=== PATIENT | male | born 1980 | race African-American/Black ===

== ENCOUNTER 2017-07-16 15:26 | Emergency (ER) | payer SELFPAY ==
--- NOTE | 2017-07-16 16:27 | ER Document Report ---
ED Medical Screen (RME) - General Chief Complaint: Groin Pain Stated Complaint: GROIN PAIN Time Seen by Provider: 07/16/17 16:25 Mode of Arrival: Ambulatory Information source: Patient TRAVEL OUTSIDE OF THE [place] IN LAST 30 DAYS: No - HPI Patient complains to provider of: scrotal pain; dysuria Onset: Yesterday - pt wit c/o scrotal pain and dysuria for the past day - Related Data Allergies/Adverse Reactions: No Known Allergies Allergy (Verified 07/16/17 15:27) Past Medical History - Social History Chew tobacco use (# tins/day): No Frequency of alcohol use: Occasional Drug Abuse: None Renal/ Medical History: Denies: Hx Peritoneal Dialysis - Immunizations Hx Diphtheria, Pertussis, Tetanus Vaccination: Yes - not in the last 5 years Physical Exam - Vital signs Vitals: Temp Pulse Resp BP Pulse Ox 98.7 F 64 16 137/93 H 97 07/16/17 15:43 07/16/17 15:43 07/16/17 15:43 07/16/17 15:43 07/16/17 15:43 Course - Vital Signs Vital signs: Temp Pulse Resp BP Pulse Ox 98.7 F 64 16 137/93 H 97 07/16/17 15:43 07/16/17 15:43 07/16/17 15:43 07/16/17 15:43 07/16/17 15:43
[2017-07-16 16:52] LABS: APPEARANCE,URINE CLEAR; BILIRUBIN,URINE NEGATIVE (NEGATIVE); COLOR,URINE YELLOW; GLUCOSE, URINE NEGATIVE (NEGATIVE); KETONES,URINE NEGATIVE (NEGATIVE); LEUKOCYTE ESTERASE,URINE NEGATIVE (NEGATIVE); NITRITE,URINE NEGATIVE (NEGATIVE); PROTEIN,URINE NEGATIVE (NEGATIVE); URINE SPECIFIC GRAVITY 1.014; UROBILINOGEN,URINE NEGATIVE mg/dL (<2.0)
--- NOTE | 2017-07-16 17:24 | RADIOLOGY REPORT (SQ) ---
EXAM DESCRIPTION: U/S SCROTUM W/DOPPLER COMPLETED DATE/TIME: 07/16/2017 5:17 pm REASON FOR STUDY: scrotal pain COMPARISON: None. TECHNIQUE: Static and realtime solomon scale imaging of the scrotum and testes. Selected color Doppler and spectral images recorded to document blood flow. LIMITATIONS: None. FINDINGS: RIGHT: TESTICLE: Normal size. Testicular microlithiasis. Otherwise normal echotexture. Normal blood flow. No mass. EPIDIDYMIS: Normal. HYDROCELE OR VARICOCELE: No. HERNIA OR EXTRA-TESTICULAR MASS: No. OTHER: No other significant finding. LEFT: TESTICLE: Normal size. Testicular microlithiasis. Otherwise normal echotexture. Normal blood flow. No mass. EPIDIDYMIS: Normal. HYDROCELE OR VARICOCELE: No. HERNIA OR EXTRA-TESTICULAR MASS: No. OTHER: No other significant finding. IMPRESSION: BILATERAL TESTICULAR MICROLITHIASIS. OTHERWISE UNREMARKABLE SCROTAL ULTRASOUND WITHOUT MASS OR TORSION. TECHNICAL DOCUMENTATION: JOB ID: [id number] edo- All Rights Reserved
[2017-07-16 18:14] LABS: CHLAM PCR NOT DETECTED (NOT DETECT); GON PCR NOT DETECTED (NOT DETECT)
--- NOTE | 2017-07-16 18:39 | ER Document Report ---
ED General - General Chief Complaint: Groin Pain Stated Complaint: GROIN PAIN Time Seen by Provider: 07/16/17 16:25 Mode of Arrival: Ambulatory Notes: Patient is a 37-year-old male without past medical history other than morbid obesity who presents with 2 days of bilateral testicular pain and dysuria. Patient describes the pain as an intermittent, throbbing, aching pain to the bilateral testicles. Nothing improves or worsens the pain. He also notes that occasionally fonseca when he urinates. He denies any fever, rash, abdominal pain , vomiting. No history of similar symptoms in the past. He has not seen his primary doctor regarding today's concerns. He has had unprotected sexual intercourse with female partners. TRAVEL OUTSIDE OF THE [place] IN LAST 30 DAYS: No - Related Data Allergies/Adverse Reactions: No Known Allergies Allergy (Verified 07/16/17 15:27) Past Medical History - General Information source: Patient - Social History Smoking Status: Never Smoker Chew tobacco use (# tins/day): No Frequency of alcohol use: Occasional Drug Abuse: None Family History: Reviewed & Not Pertinent Patient has suicidal ideation: No Patient has homicidal ideation: No Renal/ Medical History: Denies: Hx Peritoneal Dialysis - Immunizations Hx Diphtheria, Pertussis, Tetanus Vaccination: Yes - not in the last 5 years Review of Systems - Review of Systems Notes: Constitutional: Negative for fever. HENT: Negative for sore throat. Eyes: Negative for visual changes. Cardiovascular: Negative for chest pain. Respiratory: Negative for shortness of breath. Gastrointestinal: Negative for abdominal pain, vomiting or diarrhea. Genitourinary: Positive for dysuria and testicular pain Musculoskeletal: Negative for back pain. Skin: Negative for rash. Neurological: Negative for headaches, weakness or numbness. 10 point ROS negative except as marked above and in HPI. Physical Exam - Vital signs Vitals: Temp Pulse Resp BP Pulse Ox 98.7 F 64 16 137/93 H 97 07/16/17 15:43 07/16/17 15:43 07/16/17 15:43 07/16/17 15:43 07/16/17 15:43 Interpretation: Normal Notes: PHYSICAL EXAMINATION: GENERAL: Well-appearing, well-nourished and in no acute distress. HEAD: Atraumatic, normocephalic. EYES: Pupils equal round and reactive to light, extraocular movements intact, sclera anicteric, conjunctiva are normal. ENT: nares patent, oropharynx clear without exudates. Moist mucous membranes. NECK: Normal range of motion, supple without lymphadenopathy LUNGS: Breath sounds clear to auscultation bilaterally and equal. No wheezes rales or rhonchi. HEART: Regular rate and rhythm without murmurs ABDOMEN: Soft, nontender, normoactive bowel sounds. No guarding, no rebound. No masses appreciated. : No focal testicular or epididymal tenderness. Positive cremasteric reflex bilaterally. Uncircumcised penis. No scrotal or penile lesions. No urethral discharge. EXTREMITIES: Normal range of motion, no pitting or edema. No cyanosis. NEUROLOGICAL: No focal neurological deficits. Moves all extremities spontaneously and on command. PSYCH: Normal mood, normal affect. SKIN: Warm, Dry, normal turgor, no rashes or lesions noted. Course - Re-evaluation Re-evalutation: 07/16/17 18:38 Patient presents with microscopic hematuria, bilateral testicular tenderness and dysuria. Testicular exam is unremarkable without any focal epididymal or organ tenderness. Positive cremasteric reflex. No penile lesions or discharge. Urinalysis shows microscopic hematuria but no evidence of infection or gross hematuria. Testicular ultrasound shows microlithiasis in both testicles which may account for patient's symptoms. He is otherwise very well in appearance, vitals within normal limits. Based on exam and history do not suspect an acute infection such as epididymitis tightness, or an acute sexually transmitted infection. Moreover his exam and ultrasound are not consistent with testicular torsion or scrotal abscess. At this time will discharge with return precautions and follow-up recommendations. Verbal discharge instructions given a the bedside and opportunity for questions given. Medication warnings reviewed. Patient is in agreement with this plan and has verbalized understanding of return precautions and the need for primary care follow-up in the next 24-72 hours. - Vital Signs Vital signs: Temp Pulse Resp BP Pulse Ox 98.7 F 67 18 138/96 H 97 07/16/17 15:43 07/16/17 18:43 07/16/17 18:43 07/16/17 18:43 07/16/17 18:43 - Laboratory Laboratory results interpreted by me: 07/16/17 16:30 Urine Blood MODERATE H - Diagnostic Test Radiology reviewed: Reports reviewed Discharge - Discharge Clinical Impression: Testicular microlithiasis Hematuria Qualifiers: Hematuria type: idiopathic Glomerular morphologic changes: unspecified whether glomerular morphologic changes present Qualified Code(s): N02.9 - Recurrent and persistent hematuria with unspecified morphologic changes Condition: Good Disposition: HOME, SELF-CARE Additional Instructions: You have small stones in your testicles that may be causing the small amount of blood in your urine and discomfort when you urinate. It does not appear that you have an infection based on your urine studies. Follow-up with urology if your symptoms persist. You may take ibuprofen 600 mg every 6 hours as needed for discomfort. Return if you develop fever, persistent vomiting, worsening pain, or any other symptoms that are worrisome to you.
[2017-07-16 18:44] VITALS: BP 138/96
== END 2017-07-16 18:42 | disposition home or self-care (01) ==
LOC: ER 15:26
DX: N50.89 Other specified disorders of the male genital organs (principal); N02.9 Recurrent and persistent hematuria with unspecified morphologic changes; E66.01 Morbid (severe) obesity due to excess calories; Z68.41 Body mass index [BMI] 40.0-44.9, adult
CPT/HCPCS: 76870; 81001; 87491; 87591; 93976; 99284

== ENCOUNTER 2018-08-24 14:48 | Emergency (ER) | payer SELFPAY ==
--- NOTE | 2018-08-24 16:50 | ER Document Report ---
ED Flu Like - General Chief Complaint: Cough Stated Complaint: COUGH,CONGESTION,BACK PAIN Time Seen by Provider: 08/24/18 16:28 Mode of Arrival: Ambulatory Information source: Patient Notes: 40-year-old male presents to ED for cough cold congestion body aches and back pain since Monday. He states he is also had 3 stools today and has had diarrhea since Monday. He is alert oriented respirations regular and unlabored speaking in full sentences he states he has not had any fever nausea or vomiting. TRAVEL OUTSIDE OF THE [place] IN LAST 30 DAYS: No - HPI Onset: Other - Monday Timing/Duration: Intermittent Quality of pain: Achy Severity: Mild Pain Level: 1 Associated symptoms: Body/muscle aches, Nonproductive cough, Diarrhea, Rhinnorhea, Sinus pain/drainage. denies: Shortness of breath Similar symptoms previously: Yes Recently seen / treated by doctor: No - Related Data Allergies/Adverse Reactions: No Known Allergies Allergy (Verified 08/24/18 14:48) Past Medical History - General Information source: Patient - Social History Smoking Status: Never Smoker Chew tobacco use (# tins/day): No Frequency of alcohol use: Rare Drug Abuse: None Occupation: [employer] Lives with: Family Family History: Reviewed & Not Pertinent Patient has suicidal ideation: No Patient has homicidal ideation: No - Past Medical History Cardiac Medical History: Reports: None Pulmonary Medical History: Reports: None EENT Medical History: Reports: None Neurological Medical History: Reports: None Endocrine Medical History: Reports: None Renal/ Medical History: Reports: None Malignancy Medical History: Reports None GI Medical History: Reports: None Musculoskeletal Medical History: Reports None Skin Medical History: Reports None Psychiatric Medical History: Reports: None Traumatic Medical History: Reports: None Infectious Medical History: Reports: None Surgical Hx: Negative Past Surgical History: Reports: None - Immunizations Immunizations up to date: Yes Hx Diphtheria, Pertussis, Tetanus Vaccination: Yes - not in the last 5 years Review of Systems - Review of Systems Constitutional: Recent illness. denies: Chills, Fever EENT: No symptoms reported, Nose congestion, Nose discharge, Sinus pressure, Sinus discharge Cardiovascular: No symptoms reported Respiratory: Cough Gastrointestinal: Diarrhea Genitourinary: No symptoms reported Male Genitourinary: No symptoms reported Musculoskeletal: No symptoms reported Skin: No symptoms reported Hematologic/Lymphatic: No symptoms reported Neurological/Psychological: No symptoms reported -: Yes All other systems reviewed and negative Physical Exam - Vital signs Vitals: Temp Pulse Resp BP Pulse Ox 99.6 F 98 16 131/84 H 95 08/24/18 14:53 08/24/18 14:53 08/24/18 14:53 08/24/18 14:53 08/24/18 14:53 Interpretation: Normal - General General appearance: Appears well, Alert - HEENT Head: Normocephalic, Atraumatic Eyes: Normal Pupils: PERRL Ears: Normal External canal: Normal Tympanic membrane: Normal Sinus: Normal Nasal: Purulent discharge, Swelling Mouth/Lips: Normal Mucous membranes: Normal Pharynx: Post nasal drainage Neck: Normal - Respiratory Respiratory status: No respiratory distress Chest status: Nontender Breath sounds: Normal Chest palpation: Normal - Cardiovascular Rhythm: Regular Heart sounds: Normal auscultation Murmur: No - Abdominal Inspection: Normal Distension: No distension Bowel sounds: Normal Tenderness: Nontender. No: Tender Organomegaly: No organomegaly - Back Back: Normal, Nontender - Extremities General upper extremity: Normal inspection, Nontender, Normal color, Normal ROM, Normal temperature General lower extremity: Normal inspection, Nontender, Normal color, Normal ROM, Normal temperature, Normal weight bearing. No: Lefty's sign - Neurological Neuro grossly intact: Yes Cognition: Normal Orientation: AAOx4 Taiwo Coma Scale Eye Opening: Spontaneous Taiwo Coma Scale Verbal: Oriented [place] Coma Scale Motor: Obeys Commands Taiwo Coma Scale Total: 15 Speech: Normal Motor strength normal: LUE, RUE, LLE, RLE Sensory: Normal - Psychological Associated symptoms: Normal affect, Normal mood - Skin Skin Temperature: Warm Skin Moisture: Dry Skin Color: Normal Course - Re-evaluation Re-evalutation: 08/24/18 20:58 Assessment consistent with a viral infection. Patient was given instructions on diarrhea or increase in fluid intake use of Pedialyte light or Gatorade if for continued diarrhea and use of [id number] diarrhea medicine if it continues. Patient was instructed on precautions to use and diarrhea medicine as it K they can cause constipation. Patient verbalized understanding and agreement with treatment plan and patient was discharged home. - Vital Signs Vital signs: Temp Pulse Resp BP Pulse Ox 98.4 F 94 18 130/86 H 100 08/24/18 16:53 08/24/18 16:53 08/24/18 16:53 08/24/18 16:53 08/24/18 16:53 Discharge - Discharge Clinical Impression: Viral syndrome URI (upper respiratory infection) Qualifiers: URI type: unspecified viral URI Qualified Code(s): J06.9 - Acute upper respiratory infection, unspecified Condition: Stable Disposition: HOME, SELF-CARE Instructions: Family Physicians / Practices Additional Instructions: Viral Syndrome The physician has diagnosed a viral infection. Viruses not only cause "colds," but can cause many different symptoms including generalized aching, fever, headache, cough, diarrhea, nausea, vomiting, and fatigue. The treatment, for the most part, is simply relief of symptoms. This means that antibiotics are usually not given. Rest, fluids, pain medications and, occasionally, medication for the specific symptoms that are most bothersome will be prescribed. Use good handwashing to avoid passing the virus to others. Shared toys should be cleaned with disinfectant. Clean the toilets, sinks, and counter surfaces in bathrooms. Launder clothing in hot water. Contact the physician if you develop any new or unusual symptoms such as severe headache, stiff neck, high fever, chest pain, productive cough, or shortness of breath. You should be rechecked if you don't see marked improvement within seven to 10 days. UPPER RESPIRATORY ILLNESS: You have a viral infection of the respiratory passages -- a "cold." This common infection causes nasal congestion, drainage, and often sore throat and cough. It is highly contagious. The disease usually lasts about 10 to 14 days. There is no "cure" for the viral infection -- it must run its course. If there is a complication, such as bacterial infection in the nose, sinuses, midd le ear, or bronchial tubes, antibiotics may be required. The antibiotics won't affect the virus. Drink plenty of fluids. A humidifier may help. An expectorant medication or decongestant may make you more comfortable. Use acetaminophen or ibuprofen for fever or aches. See the doctor if fever persists over two days, if there is any significant worsening of your symptoms, or if you simply fail to improve as expected. Diarrhea Diarrhea means frequent, watery stools. There are many causes. Any problem that keeps the intestinal tract from absorbing water from the stool can lead to diarrhea. A sudden new diarrhea problem is usually caused by a virus, food sensitivity, toxic bacteria, or drugs. In this case, we expect the problem to go away soon. Testing is done only if you seem seriously ill from the diarrhea. If you have chronic diarrhea, or diarrhea that keeps coming back, we need to find out why. Chronic diarrhea can be due to inflammation of the bowels such as Crohn's disease or ulcerative colitis, food sensitivity such as intolerance to lactose or wheat protein, irritable bowel syndrome, and other problems. If your diarrhea is a significant problem but it's not clear why you have it, we'll refer you to a specialist for further testing. During an episode of diarrhea, drink small amounts (two to six ounces) of clear liquids (soft drinks, sport drinks, herb teas, broth, etc). Take fluids frequently to prevent dehydration. It's usually not a problem to take mild anti- diarrhea medication such as Kaopectate or Pepto-Bismol. As the diarrhea eases, advance to small amounts of bland food (mashed potato, toast) for 24 hours. Call the physician if blood appears in your vomit or stool, if vomiting lasts longer than 24 hours, if the abdominal pain worsens or becomes localized to one area, if you develop high fever, or if you become lightheaded and weak. DECONGESTANT MEDICATION: A decongestant medicine has been suggested. Often this medicine is combined in the same tablet with an antihistamine or expectorant. This type of medicine is helpful in treating a bad cold or sinus condition, as well as in treatment of the nasal congestion of hay fever. It is not of much benefit for lung infections. Decongestant medicines are related to stimulants. They can cause an increase in blood pressure and heart rate. Persons with heart disease and high blood pressure should not take decongestants without discussing this with the physician. If you develop palpitations, chest pain, headache, or tremors, stop the medicine and consult your physician. COUGH-SUPPRESSANT & EXPECTORANT MEDICATION: You are to use a cough medication as needed for relief of symptoms. This medicine is a combination of an expectorant (to make the mucous thinner and more easily "coughed up") and a cough suppressant (to reduce the frequency of coughing). The cough-suppressant medicine is related to narcotics. You may experience mild nausea and sleepiness. Some patients who are very sensitive to narcotics may have stomach pain from this medicine. Taking the medicine with food reduces these side effects. Do not drive or work with machinery until you know how this medicine affects you. The expectorant should have no side effects. Iodine-containing expectorants (such as organidin) should not be taken by persons with active thyroid disease unless approved by your doctor. Call the doctor if you develop shortness of breath, hives, rash, itching, lightheadedness, or severe nausea and vomiting. USE OF ACETAMINOPHEN (Tylenol): Acetaminophen may be taken for pain relief or fever control. It's much safer than aspirin, offering a wider range of "safe" dosages. It is safe during . Some brand names are Tylenol, Panadol, Datril, Anacin 3, Tempra, and Liquiprin. Acetaminophen can be repeated every four hours. The following are maximum recommended dosages: >89 pounds or adults 650 mg to 900 mg Acetaminophen can be repeated every four hours. Maximum dose not to exceed 4000 mg a day. FOLLOW-UP CARE: If you have been referred to a physician for follow-up care, call the physicians office for an appointment as you were instructed or within the next two days. If you experience worsening or a significant change in your symptoms, notify the physician immediately or return to the Emergency Department at any time for re-evaluation. Forms: Elevated Blood Pressure, Return to Work
[2018-08-24 16:54] VITALS: BP 130/86
== END 2018-08-24 16:53 | disposition home or self-care (01) ==
LOC: ER 14:48
DX: B34.9 Viral infection, unspecified (principal); J06.9 Acute upper respiratory infection, unspecified; R05 Cough; M54.9 Dorsalgia, unspecified; R19.7 Diarrhea, unspecified; R09.81 Nasal congestion; J34.89 Other specified disorders of nose and nasal sinuses; R09.82 Postnasal drip
CPT/HCPCS: 99283